=== PATIENT | male | born 1990 | race Caucasian/White ===

== ENCOUNTER 2022-03-12 18:55 | Emergency (ER) | payer BC, SELFPAY ==
--- NOTE | ~2022-03-12 | XR_ITS ---
EXAM: XR elbow LT min 3V DATE: 03/12/2022 19:14 HISTORY: left elbow pain after fall . COMPARISON: None available. FINDINGS: Normal mineralization. Slight cortical irregularity in the radial head. No lytic or blasti c lesion. Joint spaces are maintained. No erosion or periosteal change. Large elbow joint effusion. P osterior soft tissue swelling. IMPRESSION: Nondisplaced left radial head fracture. Large left elbow joint effusion. Reviewed, dictated and finalized at location K. IMPRESSION: Nondisplaced left radial head fracture. Large left elbow joint effu ashok.
--- NOTE | 2022-03-12 18:56 | ED.UPPEXIN ---
HPI - Extremity Injury (Upper) General Chief Complaint: Extremity Injury, Upper Stated Complaint: lt elbow injury Time Seen by Provider: 03/12/22 18:56 Source: patient and RN notes reviewed History of Present Illness HPI narrative: Patient is a 32-year-old male who presents the urgent care with complaints of left elbow pain after falling while rollerskating today at 2 PM. Patient denies of any swelling but states that the pain has worsened since the fall. Patient took ibuprofen for the pain. Patient is right-hand dominant. No other acute complaints or injuries. No acute distress noted. Patient aware of the plan of care. Some parts of this dictation were generated by voice recognition software and may contain typographical and/or grammatical inaccuracies. Related Data Allergies Allergy/AdvReac Type Severity Reaction Status Date / Time No Known Allergies Allergy Verified 03/12/22 19:03 Review of Systems Review of Systems: CONSTITUTIONAL: Denies fever, chills, or sweats. EYES: Denies visual changes, redness, or discharge. ENT: Denies rhinorrhea, congestion, sore throat, or otalgia. CARDIOVASCULAR: Denies chest pain, palpitations, or edema. RESPIRATORY: Denies cough or dyspnea. GASTROINTESTINAL: Denies abdominal pain, nausea, vomiting, or diarrhea. GENITOURINARY: Denies dysuria or hematuria. SKIN: Denies rash or itching. MUSCULOSKELETAL: Reports of left elbow pain. NEUROLOGIC: Denies headache, numbness, or weakness. All other systems reviewed are negative, except as documented in HPI. PMFSH Comments At the time of my signature, I reviewed and agree with the nursing past medical, surgical, social, and family history. There is no relevant family history pertinent to the patient complaint. Exam Narrative: GENERAL: This is a well-nourished, well-developed patient, in no apparent distress. HEAD: normocephalic, atraumatic. EYES: PERRL. Sclera clear/white. Vision is grossly intact. EARS: External ears normal NOSE: External nose normal with no obvious nasal discharge, nares without redness, no rhinorrhea. THROAT: Mucous membranes moist NECK: Neck supple SKIN: warm, intact with no suspicious lesions or rash, good texture and turgor. NEURO: awake, alert, and oriented to person, place and time. There were no obvious focal neurologic abnormalities. EXTREMITIES: Positive strong left radial pulse with capillary refill less than 2 seconds. Exacerbated pain on rotation. Full range of motion not tested due to pain and discomfort. Moderate edema to the left elbow with mild tenderness and notable joint effusion. No obvious deformity, ecchymosis or erythema. Course Course Level of Care: Express Care Visit Vital Signs Vital signs: Vital Signs Temperature 98.2 F 03/12/22 19:14 Pulse Rate 95 03/12/22 19:14 Respiratory Rate 20 03/12/22 19:14 Blood Pressure 123/79 03/12/22 19:14 Pulse Oximetry 100 03/12/22 19:14 Temperature 98.2 F 03/12/22 19:14 Pulse Rate 95 03/12/22 19:14 Respiratory Rate 20 03/12/22 19:14 Blood Pressure 123/79 03/12/22 19:14 Pulse Oximetry 100 03/12/22 19:14 Reviewed Procedures Orthopedic Splinting/Casting Injury #1: Side: left Upper Extremity Injury Location: elbow OCL: long arm Pre-Procedure Neuro Vascular Exam: normal Post-Procedure Neuro Vascular Exam: normal Other Orthopedic Equipment: other (Sling) Additional Comments: Long-arm OCL applied to the left for nondisplaced closed radial head fracture. Neurovascular exam within normal limits pre and postprocedure. Sling and OCL applied by veterinary technologist and RN. Patient tolerated well. No complications. Patient verbalizes his understanding on care for the OCL. MDM - Extremity Injury (Upper) MDM Narrative Medical decision making narrative: Reviewed x-ray results with the patient. He is aware that x-ray does show a radial head fracture without displacement. Advised the patien
[2022-03-12 19:14] VITALS: BP 123/79; PULSE 95; RESP 20; TEMP 36.8; O2SAT 100
== END 2022-03-12 19:58 | disposition home or self-care (01) ==
PROVIDERS: Emergency Provider Nurse Practitioner Family
DX: S52.125A Nondisplaced fracture of head of left radius, initial encounter for closed fracture (principal); W19.XXXA Unspecified fall, initial encounter; Y93.51 Activity, roller skating (inline) and skateboarding
CPT/HCPCS: 29105; 73080; 99214; A4565; G0463

== ENCOUNTER 2022-09-08 09:26 | Outpatient (CLI) | payer BC, SELFPAY ==
[2022-09-08 18:18] LABS: Basophils Percent Auto 0.5 % (0.2-1.2); Eosinophils Absolute Auto 0.2 K/mm3 (0-0.3); Hematocrit 41.2 % (42.0-52.0); Hemoglobin 13.6 g/dL (14.0-18.0); Immature Granulocyte Absolute 0.02 K/mm3 (0.00-0.031); Immature Granulocyte Percent A 0.3 % (0-0.5); Lymphocytes Absolute Auto 3.34 K/mm3 (0.9-3.2); Mean Corpuscular Hemoglobin 29.3 pg (26-34); Mean Corpuscular Volume 88.8 fl (80-100); Mean Platelet Volume 9.9 fl (7.4-10.4); Monocytes Absolute Auto 0.7 K/mm3 (0.1-0.6); Monocytes Percent Auto 8.9 % (2.6-8.5); Neutrophils Absolute Auto 3.2 K/mm3 (1.3-6.7); Neutrophils Percent Auto 43.3 % (45.5-73.1); Platelet Count Result 228 k/mm3 (150-375); Red Blood Count 4.64 M/mm3 (4.6-6.20); Red Cell Distribution Width 12.7 % (11.5-14.5); White Blood Count 7.4 K/mm3 (4.5-10.0)
[2022-09-08 19:02] LABS: Alanine Aminotransferase 31 U/L (6-50); Albumin Level 4.4 g/dL (3.5-5.1); Alkaline Phosphatase 75 U/L (38-126); Anion Gap 9 mmol/L (8-16); Aspartate Amino Transferase 28 U/L (17-59); Bilirubin,Total 0.7 mg/dL (0.2-1.3); Blood Urea Nitrogen 14 mg/dL (9-20); Calcium 8.7 mg/dL (8.4-10.2); Carbon Dioxide 28 mmol/L (22-30); Chloride 104 mmol/L (98-107); Cholesterol 122 mg/dL (0-200); Estimated Glomerular Filt Rate > 60; Glucose 93 mg/dL (65-110); HDL Direct 30 mg/dL; Sodium 141 mmol/L (137-145); Triglycerides 234 mg/dL (<150)
[2022-09-08 19:21] LABS: LDL Cholesterol Direct 52 mg/dL
== END 2022-09-08 09:27 | disposition home or self-care (01) ==
LOC: ANHGOSHLAB 09:28
PROVIDERS: PCP Internal Medicine; Visit Provider Nurse Practitioner
DX: Z13.29 Encounter for screening for other suspected endocrine disorder (principal); Z13.220 Encounter for screening for lipoid disorders; R53.83 Other fatigue
CPT/HCPCS: 36415; 80053; 80061; 84443; 85025

== ENCOUNTER 2022-10-12 16:02 | Outpatient (CLI) | payer BC, SELFPAY ==
[2022-10-12 19:14] LABS: Iron 78 ug/dL (49-181)
[2022-10-12 19:25] LABS: Percent Iron Saturation 22 % (20-50)
[2022-10-12 19:50] LABS: Basophils Percent Auto 0.4 % (0.2-1.2); Eosinophils Absolute Auto 0.1 K/mm3 (0-0.3); Eosinophils Percent Auto 1.1 % (0-4.4); Hematocrit 40.6 % (42.0-52.0); Hemoglobin 13.1 g/dL (14.0-18.0); Immature Granulocyte Absolute 0.03 K/mm3 (0.00-0.031); Immature Granulocyte Percent A 0.4 % (0-0.5); Lymphocytes Absolute Auto 3.85 K/mm3 (0.9-3.2); Lymphocytes Percent Auto 53.7 % (18.3-44.2); Mean Corpuscular HGB Conc 32.3 g/dl (32-36); Mean Platelet Volume 10.3 fl (7.4-10.4); Monocytes Absolute Auto 0.7 K/mm3 (0.1-0.6); Monocytes Percent Auto 9.5 % (2.6-8.5); Neutrophils Absolute Auto 2.5 K/mm3 (1.3-6.7); Neutrophils Percent Auto 34.9 % (45.5-73.1); Platelet Count Result 236 k/mm3 (150-375); Red Blood Count 4.51 M/mm3 (4.6-6.20); Red Cell Distribution Width 12.6 % (11.5-14.5); White Blood Count 7.2 K/mm3 (4.5-10.0)
[2022-10-12 20:12] LABS: Folic Acid 10.3 ng/mL (2.76->20)
== END 2022-10-12 16:03 | disposition home or self-care (01) ==
LOC: ANHGOSHLAB 16:03
PROVIDERS: PCP Internal Medicine; Visit Provider Nurse Practitioner
DX: D64.9 Anemia, unspecified (principal)
CPT/HCPCS: 36415; 82607; 82728; 82746; 83540; 83550; 85025

== ENCOUNTER 2022-11-06 09:38 | Outpatient (CLI) | payer BC, SELFPAY ==
--- NOTE | 2022-11-14 17:22 | WPDHOMESLEEP ---
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 He rarely awakens from sleep short of breath. He denies awakening at night with heartburn, belching or cough. He denies snoring. He denies having trouble sleeping when he has a cold. He rarely wakes up gasping for air throughout the night. He denies having breathing problems at night observed by himself or others. He occasionally sweats excessively at night. He denies having heart palpitations or irregular heartbeats during the night. He constantly falls asleep during the day but never while driving. He denies sleep paralysis, cataplexy and hypnagogic / hypnopompic hallucinations. He occasionally has trouble at school or work due to sleepiness. He denies feeling afraid of going to sleep. He rarely has nightmares and frequently remembers his dreams. He denies having thoughts racing through his mind. He denies feeling sad, depressed or anxious. He denies having muscular tension. He denies noticing parts of his body jerk. He denies kicking during the night. He occasionally experiences crawling and aching feelings in his legs but rarely has leg pain during the night. He occasionally grinds his teeth during sleep and frequently awakens with morning jaw pain. He denies being bothered by pain during the day and denies being awakened by pain during the night. He occasionally wakes up feeling stiff in morning. Occasionally wakes up with sore or achy muscles. He rarely wakes up with pain, spine or other joints. He goes to bed at midnight on the weekdays and between 11:00 p.m. to 2:00 a.m. on the weekends. It takes him 1 hour to fall asleep. Wakes up once throughout the night for unknown reasons but is able fall back asleep within 20 minutes. Typically gets 6-8 hours of sleep per night. He will stay in bed for 30-60 minutes after waking up in the morning. He currently lives with his daughter. He denies consuming any caffeinated beverages within 2 hours of bedtime. He denies engaging in physical exercise before bedtime. He denies reading and watching television before falling asleep. He will take naps in the afternoon or the evening but they are not refreshing. He has 1 caffeinated beverage per week. He will smoke cigarettes twice a year. He consumes 8 alcoholic beverages per weekend. He will use recreational drugs once per month. COUNT INCLUDES THE [facility] Past Medical History Medical History History of testicular biopsy 2016 Klinefelters syndrome Family History Family History Mother Thyroid disorder Social History Social History Smoking status: Unknown if ever smoked Smokeless tobacco user: chewing tobacco Alcohol intake: current Substance use: current Substance use type: crack/cocaine Lack of Transportation: No Lack of Food: Never True Current Housing: I Have Housing Concerned About Future Housing: No Difficulty Paying Gas/Electric Bills: No Difficulty Paying for Meds: No Currently Unemployed: No Education: High School Diploma/GED Difficulty w/ Childcare or Family Care: No Living arrangements: alone Occupation/Education: occupation 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
== END 2022-11-07 10:29 | disposition home or self-care (01) ==
LOC: ANHCSM 09:39
PROVIDERS: PCP Internal Medicine; Visit Provider Nurse Practitioner
DX: G47.33 Obstructive sleep apnea (adult) (pediatric) (principal); R53.82 Chronic fatigue, unspecified; R40.0 Somnolence; F17.220 Nicotine dependence, chewing tobacco, uncomplicated
CPT/HCPCS: 95806

== ENCOUNTER 2025-03-10 08:21 | Emergency (ER) | payer BC, SELFPAY ==
--- NOTE | ~2025-03-10 | XR_ITS ---
EXAMINATION: XR chest 2V, 03/10/2025 8:44 CDT HISTORY: right chest pain/sob worse with insp. r/o pneumo, sob 24 hrs COMPARISON: No comparisons available. Technique: 2 views obtained. Findings: The lungs are clear, no effusion. No pneumothorax. Heart is normal size. Mediastinal and hilar contours are within normal limits. Bony thorax no acute abnormality. Impression: No acute cardiopulmonary abnormality. Reviewed, dictated and finalized at location P. Impression: No acute cardiopulmonary abnormality.
--- NOTE | 2025-03-10 08:22 | ED_ITS ---
HPI - Chest Pain General Chief Complaint: Chest Pain Stated Complaint: CHEST PAIN Time Seen by Provider: 03/10/25 08:21 Source: patient Mode of arrival: ambulatory Limitations: no limitations History of Present Illness HPI narrative: Silvano is a 35 year old female patient presenting to the clinic today with c/o right-sided chest pain and shortness of breath x 1 day. Pain is radiating into the right arm. No neck or jaw pain. He reports pain is worse with inspiration on the right side. No injury. States he was sitting down playing [employer] when the pain began. He does vape nicotine. He is very tall and thin. No history of spontaneous pneumo in the past. Took naproxen for pain which did not help. Rates pain 8/10. Oxygen saturations 100% on room air. Patient is able speak in full sentences. Pain is worse when lying flat. History of anemia, Klinefelter syndrome, and crack cocaine use-last use was 3 years ago. Related Data Home Medications ?Medication ?Instructions ?Recorded ?Confirmed ?Last Taken ?Type No Home Medications 05/02/23 03/10/25 U nknown History Allergies Allergy/AdvReac Type Severity Reaction Status Date / Time No Known Allergies Allergy Verified 03/10/25 08:31 Review of Systems Review of Systems: Pertinent positives per HPI. Patient denies any fever, chills, rash, headache, visual changes, dizziness, cough, runny nose, sore throat, palpitations, nausea, vomiting, diarrhea, constipation, abdominal pain, or any urinary issues. [facility] Past Medical History Medical History Klinefelters syndrome History of testicular biopsy 2016 Family History Family History Mother Thyroid disorder Social History Social History Smoking status: Unknown if ever smoked Smokeless tobacco user: chewing tobacco Alcohol intake: current Substance use: current Substance use type: crack/cocaine Lack of Transportation: No Lack of Food: Never True Current Housing: I Have Housing Concerned About Future Housing: No Difficulty Paying Gas/Electric Bills: No Difficulty Paying for Meds: No Currently Unemployed: No Education: High School Diploma/GED Difficulty w/ Childcare or Family Care: No Living arrangements: alone Occupation/Education: occupation 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 There is no relevant family history pertinent to the patient complaint. Exam Narrative: General: Well-developed, well nourished, thin Head: Normocephalic, atraumatic. Cardio: Regular rate and rhythm, s1 and s2 normal, no murmur appreciated. Resp: Clear to auscultation bilaterally, no rhonchi, rales, wheezing or rubs. Extremities: No deformity, no edema, no cyanosis, capillary refill less than 2 s econds, peripheral pulses palpable and strong. Integumentary: [place], warm, and dry, intact without lesion, no rashes. Course Course Emergency Course: Portions of this record may have been created with voice recognition software. Level of Care: Express Care Visit Vital Signs Vital signs: Vital Signs Temperature 36.5 C 03/10/25 08:39 Pulse Rate 72 03/10/25 08:39 Respiratory Rate 16 03/10/25 08:39 Blood Pressure 112/87 03/10/25 08:39 Pulse Oximetry 100 03/10/25 08:39 Temperature 36.5 C 03/10/25 08:39 Pulse Rate 72 03/10/25 08:39 Respiratory Rate 16 03/10/25 08:39 Blood Pressure 112/87 03/10/25 08:39 Pulse Oximetry 100 03/10/25 08:39 Vital signs reviewed MDM - Chest Pain MDM Narrative Medical decision making narrative: At the time of visit patient is resting comfortably on the exam table. Patient appears to be nontoxic. C/o right-sided chest pain and shortness of breath x 1 day. Pain is radiating into the right arm. No neck or jaw pain. He reports pain is worse with inspiration on the right side. No injury. States he was sitting down playing [place] when the pain began. He does vape nicotine. He is very tall and thin. No history of spontaneous pneumo in the past. Took naproxen for pain which did not help. Rates pain 8/10. Oxygen saturations 100% on room air. Patient is able speak in full sentences. Pain is worse when lying flat. History of anemia, Klinefelter syndrome, and crack cocaine use EKG: EKG shows sinus bradycardia with heart rate of 56 beats per minute. No ST elevation, depression, or T-wave inversion noted. Diagnostics: Chest x-rays negative for any acute cardiopulmonary process, no pneumothorax. Plan: Patient is having right-sided chest pain and shortness of breath with pain radiating to the right arm. No neck or jaw pain. I recommend transfer to the ER for further evaluation. Patient would like to go to [facility]. Contacted Dr. Silva and discuss the case and she accepts patient for transfer. Differential Diagnosis Differential diagnosis: Likely fracture of rib, pneumothorax, stable angina, unstable angina pectoris, atypical chest pain, st elevation myocardial infarction, costochondritis and chest pain Imaging Data Radiologist's impression: ITS Impressions Chest X-Ray 03/10/25 08:51 Impression: No acute cardiopulmonary abnormality. ECG Data EKG #1: Attestation: I personally reviewed and interpreted this ECG as follows: ECG completion date: 03/10/25 ECG completion time: 08:33 Prior ECG tracings: not available for review Interpretation: EKG shows sinus bradycardia with heart rate of 56 beats per minute. No ST elevation, depression, or T-wave inversion noted. CT interval is 180 milliseconds, QRS durations 101 milliseconds, QT-QTC is 399-390 milliseconds, P-R-T axis is 52 48 45 Discharge Plan Discharge Clinical Impression: Right-sided chest pain, Shortness of breath Patient Disposition: Acute Care Hospital Condition: Stable Patient Language: Tajik Prescriptions: No Action No Home Medications Follow-up/Referrals: UNKNOWN,DOCTOR [Non-Staff] Time of Disposition: 09:03 Quality NIHSS Nursing Documentation ED NIHSS nursing documentation: reviewed/agree
--- NOTE | 2025-03-10 08:31 | ECG_ITS ---
Test Date: 2025-03-10 08:33:43 Measurements Intervals [place] Rate: 56 P: 52 [place]: 180 QRS: 48 QRSD: 101 T: 45 QT: 399 QTc: 386 Interpretive Statements SINUS BRADYCARDIA BASELINE WANDER- II, III BORDERLINE ECG No previous ECG available for comparison Electronically Signed On 03-10-2025 09:22:11 CDT by Nav Carreon D.O.
[2025-03-10 08:39] VITALS: BP 112/87; PULSE 72; RESP 16; TEMP 36.5; O2SAT 100
== END 2025-03-10 09:02 | disposition short-term general hospital (02) ==
PROVIDERS: Emergency Provider Nurse Practitioner Family
DX: R07.9 Chest pain, unspecified (principal); R06.02 Shortness of breath; F17.290 Nicotine dependence, other tobacco product, uncomplicated; F17.220 Nicotine dependence, chewing tobacco, uncomplicated
CPT/HCPCS: 71046; 93005; 99213; G0463

== ENCOUNTER 2025-03-10 09:26 | Observation (INO) | payer BC, SELFPAY ==
[2025-03-10] VITALS (7 sets, daily range): BP systolic 100–125; BP diastolic 57–82; PULSE 54–72; RESP 12–18; TEMP 36.2–36.8; O2SAT 97–100; BMI 25.6
--- NOTE | ~2025-03-10 | CT_ITS ---
CTA CHEST CT ABDOMEN PELVIS CLINICAL HISTORY: right chest/RUQ pain sob,m elevated dimer . COMPARISON: Chest x-ray same day TECHNIQUE: Helical CT performed from thoracic inlet to symphysis pubis IV contrast information not listed in PACS Coronal, sagittal reformats. Multiplanar MIPS CT images acquired with automatic exposure control for dose reduction DLP: 996 mGy-cm FINDINGS: CHEST- Thoracic Aorta: No dissection. No aneurysm. Aberrant origin right subclavian artery. Pulmonary arteries: PE lateral and posterior basilar segments RLL. Small PE right upper lobe segments. Probable tiny PE left lower lobe segment. Lungs/Pleura: Airspace disease lateral RLL. Heart: Unremarkable. Tracheobronchial tree: Patent. Nodes: No enlarged nodes. Bones: No acute bony abnormality. Soft tissues: Unremarkable. ABDOMEN/PELVIS- Liver: Unremarkable. Gallbladder: Unremarkable. Spleen: Unremarkable. Pancreas: Unremarkable. Adrenal glands: Unremarkable. Kidneys: Right kidney- No hydronephrosis. No renal stones. Left kidney- No hydronephrosis. No renal stones. Distal esophagus/stomach: Small hiatal hernia. Small bowel loops: Normal caliber and wall thickness. Colon: Normal caliber and wall thickness. Normal RLQ appendix. Nodes: No enlarged nodes. Peritoneum: No ascites. No free air. Urinary bladder: Unremarkable. Prostate: Unremarkable. Bones: No acute bony abnormality. Soft tissues: Unremarkable. Abdominal aorta: Unremarkable. IVC: Unremarkable. Main portal vein, SMV: Patent. IMPRESSION: CHEST- 1. PE. Largest foci right lower lobe, small foci right upper and left lower lobes. Overall small clot burden. 2. No CT evidence of right heart strain but labs more sensitive. 3. Right lower lobe pulmonary infarct. ABDOMEN/PELVIS- 1. No acute abdominopelvic findings. Reviewed, dictated and finalized at location R. IMPRESSION: CHEST- 1. PE. Largest foci right lower lobe, small foci right upper and left lower lo bes. Overall small clot burden. 2. No CT evidence of right heart strain but labs more sensitive. 3. Right lower lobe pulmonary infarct. ABDOMEN/PELVIS- 1. No acute abdominopelvic findings.
--- NOTE | ~2025-03-10 | US_ITS ---
ULTRASOUND ABDOMEN LIMITED (RIGHT UPPER QUADRANT) Clinical History: ruq pain Comparison: None Technique: Right upper quadrant sonography Findings: Liver: Enlarged. Echogenic. No intrahepatic biliary ductal dilatation. Normal hepatopedal flow and phasicity. Common Duct: Normal caliber. 3 mm. Gallbladder: No stones. No wall thickening. No pericholecystic fluid. Pancreas: Obscured by bowel gas. IMPRESSION: 1. No acute findings. Reviewed, dictated and finalized at location R. IMPRESSION: 1. No acute findings.
--- NOTE | ~2025-03-10 | US_ITS ---
BILATERAL US venous doppler LE BI Indication: PE, left leg pain intermitent Comparison: None Technique: Multiple lang scale and color Doppler sonographic images were obtained of the internal jugular, subclavian, axillary, brachial, basilar, radial and ulnar veins. Findings: Venous System:Normal flow, augmentation and compressibility. No echogenic thrombus identified. Soft tissues: Soft tissues are unremarkable. Impression: Negative for DVT. Reviewed, dictated and finalized at location P. Impression: Negative for DVT.
--- NOTE | 2025-03-10 09:29 | ECG_ITS ---
Test Date: 2025-03-10 09:35:38 Measurements Intervals [place] Rate: 74 P: 70 [place]: 176 QRS: 68 QRSD: 95 T: 57 QT: 377 QTc: 420 Interpretive Statements SINUS RHYTHM INCOMPLETE RIGHT BUNDLE BRANCH BLOCK BORDERLINE T WAVE ABNORMALITY- ANTERIOR LEADS BASELINE ARTIFACT- I, II, III, AVR, AVL, AVF, V1-V3 BORDERLINE ECG Compared to ECG 03/10/2025 08:33:43 HEART RATE HAS INCREASED Electronically Signed On 03-10-2025 11:36:24 CDT by Nav Carreon D.O.
[2025-03-10 09:51] LABS: Hematocrit 40.7 % (42.0-52.0); Hemoglobin 13.2 g/dL (14.0-18.0); Immature Granulocyte Percent A 0.5 % (0-0.5); Lymphocytes Absolute Auto 2.70 K/mm3 (0.9-3.2); Mean Corpuscular HGB Conc 32.4 g/dl (32-36); Mean Corpuscular Hemoglobin 28.7 pg (26-34); Mean Corpuscular Volume 88.5 fl (80-100); Nucleated Red Blood Cells Absolute Auto 0.000 K/mm3 (0.0-0.012); Nucleated Red Blood Cells Perc 0.0 % (0.0-0.2); Platelet Count Result 195 k/mm3 (150-375); Red Blood Count 4.60 M/mm3 (4.6-6.20); White Blood Count 8.4 K/mm3 (4.5-10.0)
[2025-03-10 10:07] LABS: INR 1.1; Partial Thromboplastin Time 27.2 Seconds (22.3-36.8); Prothrombin Time 13.9 Seconds (11.1-14.7)
[2025-03-10 10:20] LABS: Alanine Aminotransferase 36 U/L (6-50); Albumin Level 4.4 g/dL (3.5-5.1); Alkaline Phosphatase 68 U/L (38-126); Anion Gap 8 mmol/L (4-12); Aspartate Amino Transferase 37 U/L (17-59); Bilirubin,Total 0.8 mg/dL (0.2-1.3); Blood Urea Nitrogen 11 mg/dL (9-20); Calcium 8.9 mg/dL (8.4-10.2); Carbon Dioxide 28 mmol/L (22-30); Chloride 104 mmol/L (98-107); Estimated CRCL calculation 137 ml/min; Estimated Glomerular Filt Rate > 60; Glucose 98 mg/dL (65-110); Lipase 83 U/L (23-300); Potassium 3.8 mmol/L (3.4-5.0); Sodium 140 mmol/L (137-145); Total Protein 8.1 g/dL (6.3-8.2)
[2025-03-10 10:30] LABS: Troponin I < 0.012 ng/mL (0.000-0.034)
--- OUTSIDE RECORDS SUMMARY | 2025-03-10 10:36 | XMS_ITS | Clinical Summary ---
Author Organization [facility] Address [address] [place] [address] Phone Care Team Providers Care Dynamite Shooter Name Role Phone Junior Jung Primary Care Provider Allergies Active Allergy Reactions Criticality Noted Date Comments Buckwheat Unknown 09/01/2014 Calcium Rash Low 09/01/2014 Medications nirmatrelvir-ri tonavir (PAXLOVID) 300(150mg x 2)-100 mg oral packIndications :COVID-19 virus detected Take 300 mg nirmatrelvir (2 tablets) and 100 mg ritonavir (1 tablet) by mouth together twice daily for 5 days. 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 Klinefelter's syndrome 12/01/2014 Social History Tobacco Use Types Packs/Day Years Used Date Smoking Tobacco: Former Smokeless Tobacco: Never Tobacco Cessation:Counseling Given: Not Answered Alcohol Use Standard Drinks/Week Comments Yes 0 (1 standard drink = 0.6 oz pur e alcohol) Sex and Gender Information Value Date Recorded Sex Assigned at Not on file Legal Sex Male 8:21 AM CDT Gender Identity Not on file Sexual Orientation Not on file Last Filed Vital Signs Vital Sign Reading Time Taken Comments Blood Pressure 107/71 03/07/2022 2:59 PM CDT Pulse 86 03/07/2022 2:59 PM CDT Temperature 36.6 C (97.9 F) 03/07/2022 2:59 PM CDT Respiratory Rate 16 03/07/2022 2:59 PM CDT Oxygen Saturation 98% 03/07/2022 2:59 PM CDT Inhaled Oxygen Concentration - - Weight 90.7 kg (200 lb) 03/07/2022 2:59 PM CDT Height 200.7 cm (6' 7) 03/07/2022 2:59 PM CDT Body Mass Index 22.53 03/07/2022 2:59 PM CDT Plan of Treatment Health Maintenance Due Date Last Done Comments DTAP/TDAP/TD VACCINES (1 - Tdap) 2010 HEPATITIS B VACCINES (1 of 3 - 19+ 3-dose series) 12/27 HPV VACCINES (1 - 3-dose SCDM series) 2018 INFLUENZA VACCINE (#1) 2024 04/14/2021 Insurance [facility] Care Teams Dynamite Shooter Relationship Specialty Start Date End Date [place] [address] PCP - General Family Practice 02/18/16
[2025-03-10] MEDS: ASPIRIN 81 MG CHEWABLE TABLET 324 MG PO (11:59)
--- NOTE | 2025-03-10 12:10 | ECG_ITS ---
Test Date: 2025-03-10 12:29:05 Measurements Intervals [place] Rate: 60 P: 62 [place]: 190 QRS: 52 QRSD: 94 T: 46 QT: 417 QTc: 418 Interpretive Statements SINUS RHYTHM WITH SINUS ARRHYTHMIA INCOMPLETE RIGHT BUNDLE BRANCH BLOCK BORDERLINE ECG Compared to ECG 03/10/2025 09:35:38 NO SIGNIFICANT CHANGE Electronically Signed On 03-10-2025 14:21:45 CDT by Nav Carreon D.O.
--- NOTE | 2025-03-10 12:50 | ED_ITS ---
HPI - SOB/Dyspnea General Chief Complaint: Shortness of Breath/Dyspnea Stated Complaint: sob Time Seen by Provider: 03/10/25 12:04 History of Present Illness HPI Narrative: 35-year-old male with past medical history including Klinefelter syndrome, remote crack cocaine use, history of anemia. Patient presents to the emergency room today with right-sided chest discomfort associated with shortness of breath and positional changes. He states that he has difficulty lying flat secondary to the pain as well as taking a deep breath reproduces pain which he states is localized right under his right breast in the right upper quadrant area going towards his back and shoulder. No history of gallstones, pneumonia, DVT or PE history. Does not take any medications. No allergies. Went to urgent care today and was referred to the emergency department for further evaluation. Patient is not any acute distress and otherwise well-appearing. Related Data Home Medications ?Medication ?Instructions ?Recorded ?Confirmed ?Last Taken ?Type No Home Medications 05/02/23 03/10/25 U nknown History Allergies Allergy/AdvReac Type Severity Reaction Status Date / Time buckwheat Allergy Mild Unknown Verified 03/10/25 15:19 oysters Allergy Severe Anaphylaxis Uncoded 03/10/25 15:19 Review of Systems 2 Review of Systems: As reviewed above in HPI [facility] Past Medical History Medical History (Updated 03/11/25 @ 01:46 by Titus Boucher MD) Pulmonary embolism and infarction Klinefelters syndrome History of testicular biopsy 2016 Family History Family History Mother Thyroid disorder Social History Social History Smoking status: Current every day smoker Tobacco type: e-cigarettes/vaping Smokeless tobacco user: chewing tobacco Alcohol intake: never Substance use: never Substance use type: crack/cocaine Lack of Transportation: No Lack of Food: Never True Current Housing: I Have Housing Concerned About Future Housing: No Difficulty Paying Gas/Electric Bills: No Difficulty Paying for Meds: No Currently Unemployed: No Education: High School Diploma/GED Difficulty w/ Childcare or Family Care: No Living arrangements: alone Occupation/Education: occupation 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 Mucous membranes moist. NECK: Supple. CHEST: [Clear to auscultation. No respiratory distress.] HEART: [Regular rate and rhythm]. No murmur heard. [Normal peripheral pulses.] ABDOMEN: [Soft, nondistended], reproducible pain in the right upper quadrant with deep palpation and positive Chaparro sign. No overlying skin changes, [No rigidity or guarding] EXTREMITIES: Normal range of motion. [No edema.] SKIN: Warm, dry, no rash. NEURO: [No focal deficits]. Alert and oriented [x3.] PSYCH: [Normal mood and affect.] Course Vital Signs Vital signs: Vital Signs Pulse Rate 72 03/10/25 09:30 Respiratory Rate 18 03/10/25 09:30 Blood Pressure 125/80 03/10/25 09:30 Pulse Oximetry 100 03/10/25 09:30 Temperature 36.8 C 03/10/25 19:55 Pulse Rate 62 03/10/25 19:55 Respiratory Rate 18 03/10/25 19:55 Blood Pressure 106/57 L 03/10/25 19:55 Pulse Oximetry 97 03/10/25 19:55 Oxygen Delivery Room Air 03/10/25 15:12 MDM - SOB/Dyspnea MDM Narrative Medical decision making narrative: 35-year-old male with past medical history including Klinefelter syndrome, remote crack cocaine use, history of anemia. Patient presents to the emergency room today with right-sided chest discomfort associated with shortness of breath and positional changes. He states that he has difficulty lying flat secondary to the pain as well as taking a deep breath reproduces pain which he states is localized right under his right breast in the right upper quadrant area going towards his back and shoulder. No history of gallstones, pneumonia, DVT or PE history. Does not take any medications. No allergies. Went to urgent care today and was referred to the emergency department for further evaluation. Patient is not any acute distress and otherwise well-appearing. Patient otherwise has reassuring vital signs no tachycardia, fever, hypoxia or blood pressure concerns. He has reproducible pain underneath his right breast in the right upper quadrant produced with deep palpation and positive Chaparro sign. No asymmetric breath sounds. No overlying skin changes. Concerned that his chest pain that radiates towards the shoulder and back could potentially be biliary in nature like biliary colic versus cholelithiasis/cholecystitis. Also potential for pneumonia and less likely cardiac anomalies. A workup was ordered in triage including a D-dimer, EKG, chest x-ray and serial troponins. D-dimer mildly elevated. CT angiography of the chest was ordered for further evaluation of potential pulmonary embolism all right upper quadrant ultrasound ordered for further workup of his location of pain. Given Toradol for analgesia and re- evaluated. Patient's initial troponin is negative, CT angiography shows a pulmonary embolism with right-sided pulmonary infarct. No superimposed pneumonia. Patient was informed about the CT findings and given a weight based Lovenox stones b.i.d. starting now. Ultrasound of his right upper quadrant was negative. Discussed the case with the hospitalist who accepted the patient to a telemetry monitored bed for admission with ultrasound echocardiogram ordered and anticoagulation given. Patient remained hemodynamically stable and comfortable the plan for admission to the hospital at this time. Medical Records Attestation: I reviewed the patient's medical records. Lab Data Attestation: I reviewed the patient's lab results. 03/10/25 09:42 03/10/25 09:42 Labs: Lab Results 03/10/25 03/10/25 Range/Units 09:42 12:40 WBC 8.4 (4.5-10.0) K/mm3 RBC 4.60 (4.6-6.20) M/mm3 Hgb 13.2 L (14.0-18.0) g/dL Hct 40.7 L (42.0-52.0) % MCV 88.5 (80-100) fl MCH 28.7 (26-34) pg MCHC 32.4 (32-36) g/dl RDW 12.8 (11.5-14.5) % Plt Count 195 (150-375) k/mm3 MPV 9.5 (7.4-10.4) fl Immature Gran % (Auto) 0.5 (0-0.5) % Neut % (Auto) 54.6 (45.5-73.1) % Lymph % (Auto) 32.0 (18.3-44.2) % [place] % (Auto) 9.1 H (2.6-8.5) % Eos % (Auto) 3.2 (0-4.4) % Baso % (Auto) 0.6 (0.2-1.2) % Lymph # (Auto) 2.70 (0.9-3.2) K/mm3 [place] # (Auto) 0.8 H (0.1-0.6) K/mm3 Eos # (Auto) 0.3 (0-0.3) K/mm3 Baso # (Auto) 0.1 (0.0-0.1) K/mm3 Abs Immat Gran (auto) 0.04 H (0.00-0.031) K/mm3 Absolute Neuts (auto) 4.6 (1.3-6.7) K/mm3 Absolute Nucleated RBC 0.000 (0.0-0.012) K/mm3 Nucleated RBC % 0.0 (0.0-0.2) % PT 13.9 (11.1-14.7) Seconds INR 1.1 APTT 27.2 (22.3-36.8) Seconds D-Dimer 0.84 H (<0.48) ug/mL Sodium 140 (137-145) mmol/L Potassium 3.8 (3.4-5.0) mmol/L Chloride 104 (98-107) mmol/L Carbon Dioxide 28 (22-30) mmol/L Anion Gap 8 (4-12) mmol/L BUN 11 (9-20) mg/dL Creatinine 0.88 (0.7-1.3) mg/dL Estim Creat Clear Calc 137 ml/min Estimated GFR > 60 (59 - ) Glucose 98 (65-110) mg/dL Calcium 8.9 (8.4-10.2) mg/dL Total Bilirubin 0.8 (0.2-1.3) mg/dL AST 37 (17-59) U/L ALT 36 (6-50) U/L Alkaline Phosphatase 68 (38-126) U/L Troponin I < 0.012 < 0.012 (0.000-0.034) ng/mL Total Protein 8.1 (6.3-8.2) g/dL Albumin 4.4 (3.5-5.1) g/dL Lipase 83 (23-300) U/L Imaging Data Attestation: I personally reviewed and interpreted this imaging study as follows: My impression: Impressions Chest/Abdomen/Pelvis CTA 03/10/25 13:32 IMPRESSION: CHEST- 1. PE. Largest foci right lower lobe, small foci right upper and left lower lobes. Overall small clot burden. 2. No CT evidence of right heart strain but labs more sensitive. 3. Right lower lobe pulmonary infarct. ABDOMEN/PELVIS- 1. No acute abdominopelvic findings. Abdomen Ultrasound 03/10/25 13:39 IMPRESSION: 1. No acute findings. Critical Care Time Critical Care Time Critical Care Time: Yes Total Critical Care Time: 35 Discharge Plan Discharge Clinical Impression: Pulmonary embolism and infarction, Chest pain, Klinefelters syndrome Patient Disposition: Still a Patient Condition: Stable
--- NOTE | 2025-03-10 12:54 | PC.NURSE ---
ultrasound at bedside.
[2025-03-10] MEDS: KETOROLAC 15 MG/ML VIAL (*BKC) IV PUSH (13:05)
[2025-03-10 13:10] LABS: Troponin I < 0.012 ng/mL (0.000-0.034)
--- NOTE | 2025-03-10 13:56 | PC.NURSE ---
Dr. Boucher at bedside updating pt.
--- OUTSIDE RECORDS SUMMARY | 2025-03-10 14:02 | XMS_ITS | Clinical Summary ---
Author Organization [facility] Address [address] [place] [address] Phone Care Team Providers Care Vending Machine Servicer Name Role Phone Junior Jung Primary Care [...] 2018 INFLUENZA VACCINE (#1) 2024 04/14/2021 Insurance [facility] Care Teams Vending Machine Servicer Relationship Specialty Start Date End Date [place] [address] PCP - General Family Practice 02/18/16
[2025-03-10] MEDS: ENOXAPARIN 100 MG/ML SYRINGE SUB-Q ×2 (14:24→21:08)
--- NOTE | 2025-03-10 14:31 | PC.NURSE ---
Ultrasound at bedside. Meal tray ordered for pt.
--- NOTE | 2025-03-10 15:12 | ADMGEN ---
This patient, Silvano Elder, was admitted to Medical Room 254-01. Patient/family oriented to hospital policies and general routines including ID bracelet, bed and alarms, visiting hours, pain management, procedures, bathroom and other care routines, personal items, smoking policy, room service/diet, and visiting hours. Information on how to activate the Rapid Response Team has been discussed. Patient/Family are encouraged to report perceived risks to care and to ask questions if they do not understand what they are told or what they should do.
--- NOTE | 2025-03-10 15:34 | PM.IMHP ---
H&P: HPI History of Present Illness Date/Time: 03/10/25 15:34 Chief Complaint: Right-sided chest pain Narrative: 35-year-old male with past medical history of Klinefelters syndrome presents to the ED from Urgent Care on 03/10/2025 with complaints of right-sided chest pain that began on 03/09. Patient also endorses shortness of breath. Pain located on the right side of his chest just below the nipple line and radiates slightly towards his right shoulder and back. Reports pain is worse with inspiration and movement. Denies injury, cough, hemoptysis, fever, chills. Patient was playing a video game when pain began. No history of spontaneous pneumo. Patient states he took naproxen and went to bed thinking he pulled a muscle. Rated pain 01/04 arrival. Initial vitals 125/80, 72 heart rate, respirations 18, O2 100% on room air, 97.2? F Labs revealed stable anemia in a D-dimer of 0.84 Right upper quadrant ultrasound with no acute findings CXR with no acute cardiopulmonary abnormality CTA chest PE abdomen pelvis reveals PE with largest foci of right lower lobe, small foci right upper and left lower lobes. Overall small clot burden. No CT evidence of right heart strain. Right lower lobe pulmonary infarct Bilateral lower extremity venous Doppler negative for PE Review of Systems Review of Systems: All systems reviewed & are unremarkable except as noted in HPI and below PMFSH Past Medical History Medical History (Updated 03/11/25 @ 00:23 by Nicole White APRN) Pulmonary embolism and infarction Klinefelters syndrome History of testicular biopsy 2016 Family History Family History Mother Thyroid disorder Social History Social History Smoking status: Current every day smoker Tobacco type: e-cigarettes/vaping Smokeless tobacco user: chewing tobacco Alcohol intake: never Substance use: never Substance use type: crack/cocaine Lack of Transportation: No Lack of Food: Never True Current Housing: I Have Housing Concerned About Future Housing: No Difficulty Paying Gas/Electric Bills: No Difficulty Paying for Meds: No Currently Unemployed: No Education: High School Diploma/GED Difficulty w/ Childcare or Family Care: No Living arrangements: alone Occupation/Education: occupation 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 Gender identity (if verbalized by the patient): Male Spiritual care concerns: No Meds Home Medications and Allergies Home Medications ?Medication ?Instructions ?Recorded ?Confirmed ?Type No Home Medications 05/02/23 03/10/25 History Allergies Allergy/AdvReac Type Severity Reaction Status Date / Time buckwheat Allergy Mild Unknown Verified 03/10/25 15:19 oysters Allergy Severe Anaphylaxis Uncoded 03/10/25 15:19 Vital Signs Vital Signs - 24 hr 03/10/25 09:30 03/10/25 11:38 03/10/25 11:41 Temperature Pulse Rate 72 54 L Respiratory Rate 18 12 Blood Pressure 125/80 102/60 Pulse Oximetry 100 98 Oxygen Delivery Room Air 03/10/25 14:25 03/10/25 15:20 Temperature 97.2 F L Pulse Rate 57 L 57 L Respiratory Rate 17 16 Blood Pressure 110/82 100/60 Pulse Oximetry 100 99 Oxygen Delivery Exam Narrative: GENERAL: non-toxic appearing, in no acute distress. HEAD: Normocephalic, atraumatic. EYES: PERRLA. Conjunctivae clear. NOSE: Normal no drainage. THROAT: Pharynx clear, no exudate. NECK: Trachea midline. No adenopathy, no masses. RESPIRATORY: Airway patent, respirations nonlabored. CTA. Shallow respirations noted. Pain upon palpation to right chest area CARDIOVASCULAR: Regular rate and rhythm GASTROINTESTINAL: Abdomen is soft and nontender. No organomegaly. Bowel sounds normal in all quadrants. GENITOURINARY: Defer MUSCULOSKELETAL: Moves all extremities. No gross deformities. No calf tenderness. SKIN: Warm, dry, normal color. NEURO: A&O X4. Speech clear PSYCHIATRIC: Normal interaction H&P: Results Labs Labs: Short CBC 03/10/25 Range/Units 09:42 WBC 8.4 (4.5-10.0) K/mm3 Hgb 13.2 L (14.0-18.0) g/dL Hct 40.7 L (42.0-52.0) % Plt Count 195 (150-375) k/mm3 BMP 03/10/25 09:42 Sodium 140 Potassium 3.8 Chloride 104 Carbon Dioxide 28 BUN 11 Creatinine 0.88 Glucose 98 Calcium 8.9 Cardiac Enzymes 03/10/25 03/10/25 Range/Units 09:42 12:40 Troponin I < 0.012 < 0.012 (0.000-0.034) ng/mL Liver Function 03/10/25 Range/Units 09:42 Total Bilirubin 0.8 (0.2-1.3) mg/dL AST 37 (17-59) U/L ALT 36 (6-50) U/L Alkaline Phosphatase 68 (38-126) U/L Albumin 4.4 (3.5-5.1) g/dL Assessment and Plan Assessment and plan (1) Pulmonary embolism and infarction: Code(s): I26.99 - Other pulmonary embolism without acute cor pulmonale Status: Acute Assessment and Plan: Patient presented with sudden right-sided chest pain worse with inspiration that began on 03/09. CTA chest PE abdomen pelvis reveals PE with largest foci of right lower lobe, small foci right upper and left lower lobes. Overall small clot burden. No CT evidence of right heart strain. Right lower lobe pulmonary infarct. -Lovenox 100 mg q.12 started on 03/10 -echo ordered -pain control with acetaminophen, hydrocodone, morphine (2) Klinefelters syndrome: Code(s): Q98.4 - Klinefelter syndrome, unspecified Status: Acute Assessment and Plan: Diagnosed in childhood. Klinefelter syndrome carries an increased risk for DVT and PE. Plan Diet: Regular GI prophylaxis: NA DVT prophylaxis: Lovenox 100 mg q.12 lines/drains: PIV Fluids: None Code status: Full Quality VTE Prophylaxis VTE prophylaxis: pharmacologic ordered Hospitalist [facility] Advance Care Plan I have confirmed that the patient's Advanced Care Plan is present, code status is documented, or surrogate decision maker is listed in patient medical record.: Yes Medication Reconciliation I have utilized all available resources to obtain, update and review the patients current medications (includes all prescriptions, OTC, herbals, cannabis, and nutritional supplements).: Yes
[2025-03-10 16:38] LABS: Troponin I < 0.012 ng/mL (0.000-0.034)
[2025-03-10] MEDS: MORPHINE SULFATE (*CRX) 4 MG/ML INJ 2 MG IV PUSH ×2 (16:40→21:07)
[2025-03-10] MEDS: HYDROcodone/acetaminophen (*CRX) 5-325 MG TABLET 1 TAB PO (21:37)
[2025-03-11] VITALS (12 sets, daily range): BP systolic 93–123; BP diastolic 52–67; PULSE 62–97; RESP 16–18; TEMP 36.6–37.6; O2SAT 94–95
[2025-03-11] MEDS: MORPHINE SULFATE (*CRX) 4 MG/ML INJ 2 MG IV PUSH ×2 (01:15→11:44)
[2025-03-11] MEDS: HYDROcodone/acetaminophen (*CRX) 5-325 MG TABLET 1 TAB PO ×3 (03:14→20:14)
[2025-03-11] MEDS: diazePAM (*CRX) 5 MG TABLET PO (03:58)
--- NOTE | 2025-03-11 06:00 | ECHO_ITS ---
Patient Info Name: Silvano Elder Age: 35 years : 1990 Gender: Male Ht: 79 in Wt: 227 lbs BSA: 2.40 m2 HR: 67 bpm BP: 100 / 52 mmHg Heart Rhythm: Sinus Rhythm Technical Quality: Good Exam Date: 03/11/2025 9:13 AM Patient Status: O Admit Date: 03/10/2025 Exam Type: CA echo dop color flow w con Complete two-dimensional, color flow and Doppler transthoracic echocardiogram is performed with contrast to opacify the left ventricle and to improve the deliniation of the left ventricle endocardial borders. Staff Referring Physician: Titus Boucher Merchandise Flow Manager: Sumit Santos III Attending Provider: Lena Weinberg MD Contrast/Agitated Saline Contrast/Ag. Saline: Definity Amount: 2.00 ml Administered By: Sumit Santos III Existing IV Access: Yes IV Access Condition: patent with no signs of infiltration Summary 1. Left ventricular chamber dimension is normal. 2. Left ventricular systolic function is normal, estimated at 55-60. 3. There is no increased left ventricular wall thickness. 4. The left ventricular diastolic function is normal. 5. Right ventricular chamber dimension is mildly enlarged. 6. Right ventricular systolic function is normal. 7. There is mild mitral valve regurgitation. 8. There is mild tricuspid valve regurgitation. 9. There is mild pulmonic regurgitation. Left Ventricle Left ventricular chamber dimension is normal. Left ventricular systolic function is normal, estimated at 55-60. There is no increased left ventricular wall thickness. The left ventricular diastolic function is normal. Right Ventricle Right ventricular chamber dimension is mildly enlarged. Right ventricular systolic function is normal. Left Atria Left atrial chamber dimension is normal. Right Atria Right atrial chamber dimension is normal. Atrial Septum Intact interatrial septum visualized by color flow imaging. Aortic Valve The aortic valve is trileaflet. There is no aortic valve sclerosis. There is no aortic valve stenosis. There is trace aortic valve regurgitation. Pulmonic Valve The pulmonic valve is normal. There is no pulmonic valve stenosis. There is mild pulmonic regurgitation. Mitral Valve The mitral valve has normal leaflets. There is no mitral valve stenosis. There is mild mitral valve regurgitation. Tricuspid Valve The tricuspid valve leaflets are normal. There is no significant tricuspid valve stenosis. There is mild tricuspid valve regurgitation. No pulmonary hypertension, estimated pulmonary arterial systolic pressure is 16 mmHg. Pericardium/Pleural The pericardium appears normal. There is no pericardial effusion. Inferior Vena Cava Normal inferior vena cava with >50% collapse upon inspiration consistent with normal right atrial pressure, 10 mmHg. Aorta The aortic root size at the sinus of Valsalva is normal. Left Ventricular Outflow Tract Name Value Normal LVOT 2D LVOT Diameter 2.4 cm LVOT Doppler LVOT Peak Velocity 88 cm/s LVOT Peak Gradient 3 mmHg LVOT Mean Gradient 2 mmHg LVOT VTI 16 cm LVOT VTI/AV VTI Ratio 0.9 LVOT Stroke Volume 72 ml Pulmonic Valve Name Value Normal PV Doppler PV Peak Velocity 89 cm/s PV Peak Gradient 3 mmHg PV Mean Gradient 2 mmHg PV Regurgitation Doppler NV Peak End Diastolic Velocity 98 cm/s Mitral Valve Name Value Normal MV Doppler MV Peak Gradient 3 mmHg MV Mean Gradient 1 mmHg MV Area (Cont Eq VTI) 3.2 cm2 MV Diastolic Function MV E Peak Velocity 87 cm/s MV A Peak Velocity 48 cm/s MV E/A 1.8 MV Decel Time (PW) 256 ms MV Annular TDI MV E/e' (Septal) 5.6 MV E/e' (Lateral) 5.1 MV E/e' (Average) 5.4 Tricuspid Valve Name Value Normal TV Regurgitation Doppler TR Peak Velocity 119 cm/s TR Peak Gradient 6 mmHg Estimated PAP/RSVP RA Pressure 10 mmHg <=5 PA Systolic Pressure 16 mmHg <36 RV Systolic Pressure 16 mmHg <36 TV Annular TDI TV Lateral Cora s' Velocity 16.0 cm/s >=9.5 Aortic Valve Name Value Normal AV Doppler AV Peak Velocity 119 cm/s AV Peak Gradient 6 mmHg AV Mean Gradient 3 mmHg AV VTI 18 cm AV Area (Cont Eq VTI) 3.9 cm2 >=3.0 AV Area (Cont Eq Apollo) 3.3 cm2 AV DI (Apollo) 0.74 AV Regurgitation 2D LVOT Area 4.4 cm2 Ventricles Name Value Normal LV Dimensions 2D/MM IVS Diastolic Thickness (2D) 0.9 cm 0.6-1.0 LVID Diastole (2D) 4.8 cm 4.2-5.8 LVIW Diastolic Thickness (2D) 0.9 cm 0.6-1.0 LVID Systole (2D) 3.3 cm 2.5-4.0 LVOT Diameter 2.4 cm LV Mass (2D Cubed) 155.48 g 88.00-224.00 LV Mass Index (2D Cubed) 65 g/m2 49-115 Relative Wall Thickness (2D) 0.40 <=0.42 LV Fractional Shortening/Ejection Fraction 2D/MM LV Fractional Shortening (2D) 32 % 25-43 LV EF (2D Teichharmeetz) 59 % LV Diastolic Volume (4C MOD) 87 ml LV EF (4C MOD) 59 % LV Diastolic Volume (2C MOD) 113 ml LV EF (2C MOD) 61 % LV Diastolic Volume (BP MOD) 101 ml 62-150 LV Diastolic Volume Index (BP MOD) 42 ml/m2 34-74 LV Systolic Volume (BP MOD) 39 ml 21-61 LV Systolic Volume Index (BP MOD) 16 ml/m2 11-31 LV EF (BP MOD) 61 % 52-72 LV Diastolic Length (4C) 9.1 cm LV Systolic Length (4C) 7.3 cm LV Stroke Volume (4C MOD) 51 ml Atria Name Value Normal LA Dimensions LA Volume (4C A-L) 54 ml LA Volume (BP A-L) 49 ml RA Dimensions RA Systolic Major Sterling Length (4C) 5.7 cm 2.1-2.7 RA Area (4C) 21.7 cm2 <=18.0 Report Signatures
--- NOTE | 2025-03-11 07:57 | P.PNIM_ITS ---
Progress Note: A&P Assessment and Plan (1) Pulmonary embolism and infarction: Code(s): I26.99 - Other pulmonary embolism without acute cor pulmonale Status: Acute Assessment and Plan: Patient presented with sudden right-sided chest pain worse with inspiration that began on 03/09. 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 Largest foci right lower lobe, small foci right upper and left lower lobes. Overall small clot burden. No CT evidence of right heart strain but labs more sensitive. Right lower lobe pulmonary infarct. - Echo: LVEF 55-60% with normal diastolic function, no noted right heart strain - Analgesics: lidocaine, tylenol, norco 5-325 q4h, norco 7-325 q6h, and morphine 1 mg q4h patient currently requiring IV pain medication, continue to wean to orals as tolerated - Anticoagulation: Lovenox 100 mg BID started on admission, transitioned to eliquis 10 mg BID x7 days, then 5 mg BID (2) Klinefelters syndrome: Code(s): Q98.4 - Klinefelter syndrome, unspecified Status: Acute Assessment and Plan: Diagnosed in childhood. Klinefelter syndrome carries an increased risk for DVT and PE. Time Spent With Patient Time with patient: 25 - 35 minutes Subjective Date/time seen: 03/11/25 07:57 Interval history: 35-year-old male with past medical history of Klinefelters syndrome presents to the ED from Urgent Care on 03/10/2025 with complaints of right-sided chest pain. Patient is pleasant sitting up comfortably in bed. He continues to endorse right-sided rib pain and shortness of breath that is further exacerbated with ambulation. He has no other complaints denying chest pain, palpitations, nausea/vomiting, abdominal pain. Review of Systems Review of Systems: All systems reviewed & are unremarkable except as noted in HPI and below Exam Narrative: AF HR 84 RR 17 Spo2 94 BP 102/58 General: male in no acute respiratory distress who is nontoxic appearing, sit ting up in bed. HEENT: Normocephalic. Atraumatic. Extraocular movement intact. Sclera clear and anicteric. No facial asymmetry. Chest: Lungs are clear to auscultation bilaterally. Right rib pain. CV: Heart was regular rate and rhythm. Abd: Abdomen was soft. Nontender. Nondistended. Positive bowel sounds. Ext: No clubbing, cyanosis, or edema. DP pulses bilaterally. Neuro: Patient is alert. Speech is clear. Objective Data Vital Signs Vital Signs: Vital Signs - 24 hr 03/10/25 09:30 03/10/25 11:38 03/10/25 11:41 Temperature Pulse Rate 72 54 L Respiratory Rate 18 12 Blood Pressure 125/80 102/60 Pulse Oximetry 100 98 Oxygen Delivery Room Air 03/10/25 14:25 03/10/25 15:12 03/10/25 15:20 Temperature 97.2 F L Pulse Rate 57 L 57 L Respiratory Rate 17 16 Blood Pressure 110/82 100/60 Pulse Oximetry 100 99 Oxygen Delivery Room Air 03/10/25 16:00 03/10/25 19:55 03/10/25 20:00 Temperature 98.2 F Pulse Rate 58 L 62 68 Respiratory Rate 18 Blood Pressure 106/57 L Pulse Oximetry 97 Oxygen Delivery 03/10/25 20:00 03/11/25 00:00 03/11/25 04:00 Temperature Pulse Rate 62 71 Respiratory Rate Blood Pressure Pulse Oximetry Oxygen Delivery Room Air 03/11/25 04:47 Temperature 97.8 F Pulse Rate 67 Respiratory Rate 17 Blood Pressure 100/52 L Pulse Oximetry 95 Oxygen Delivery Intake/Output Intake/Output: Intake & Output 03/08/25 03/09/25 03/10/25 03/11/25 23:59 23:59 23:59 23:59 Intake Total 240 500 Balance 240 500 Meds/Results Medications: Active Medications Generic Name Dose Route Start Last Admin Trade Name Freq PRN Reason Stop Dose Admin Acetaminophen 650 mg 03/10/25 16:20 Acetaminophen 325 Mg Tablet PO Q4H PRN Mild Pain (1-3) or Fever Hydrocodone Bitart/Acetaminophen 1 tab 03/10/25 16:20 03/11/25 03:14 Hydrocodone/Acetaminophen (*Crx) 5-325 Mg Tablet PO 1 tab Q4H PRN Administration Pain Rated 4-6 Enoxaparin Sodium 100 mg 03/10/25 22:00 03/10/25 21:08 Enoxaparin 100 Mg/Ml Syringe SUB-Q 100 mg Q12HR LAURY Administration Morphine Sulfate 2 mg 03/10/25 16:20 03/11/25 01:15 Morphine Sulfate (*Crx) 4 Mg/Ml Inj IV PUSH 2 mg Q4H PRN Administration Pain Rated 7-10 Perflutren Lipid Microsphere 0 ml 03/10/25 14:03 Perflutren Lipid Microspheres 1.5 Ml Vial Diluted To 10 Ml Total Volume IV PUSH 03/13/25 14:03 ONCE PRN adequate visualization Protocol Radiology Results: ITS Impressions Chest/Abdomen/Pelvis CTA 03/10/25 13:32 IMPRESSION: CHEST- 1. PE. Largest foci right lower lobe, small foci right upper and left lower lobes. Overall small clot burden. 2. No CT evidence of right heart strain but labs more sensitive. 3. Right lower lobe pulmonary infarct. ABDOMEN/PELVIS- 1. No acute abdominopelvic findings. Abdomen Ultrasound 03/10/25 13:39 IMPRESSION: 1. No acute findings. Venous Doppler Study 03/10/25 15:05 Impression: Negative for DVT. Labs Labs: Laboratory Results - last 24 hr 03/10/25 03/10/25 03/10/25 09:42 12:40 15:59 WBC 8.4 RBC 4.60 Hgb 13.2 L Hct 40.7 L MCV 88.5 MCH 28.7 MCHC 32.4 RDW 12.8 Plt Count 195 MPV 9.5 Immature Gran % (Auto) 0.5 Neut % (Auto) 54.6 Lymph % (Auto) 32.0 [place] % (Auto) 9.1 H Eos % (Auto) 3.2 Baso % (Auto) 0.6 Lymph # (Auto) 2.70 [place] # (Auto) 0.8 H Eos # (Auto) 0.3 Baso # (Auto) 0.1 Abs Immat Gran (auto) 0.04 H Absolute Neuts (auto) 4.6 Absolute Nucleated RBC 0.000 Nucleated RBC % 0.0 PT 13.9 INR 1.1 APTT 27.2 D-Dimer 0.84 H Sodium 140 Potassium 3.8 Chloride 104 Carbon Dioxide 28 Anion Gap 8 BUN 11 Creatinine 0.88 Estim Creat Clear Calc 137 Estimated GFR > 60 Glucose 98 Calcium 8.9 Total Bilirubin 0.8 AST 37 ALT 36 Alkaline Phosphatase 68 Troponin I < 0.012 < 0.012 < 0.012 Total Protein 8.1 Albumin 4.4 Lipase 83 Quality VTE Prophylaxis VTE prophylaxis: pharmacologic ordered
[2025-03-11] MEDS: ENOXAPARIN 100 MG/ML SYRINGE SUB-Q (08:37)
[2025-03-11] MEDS: PERFLUTREN LIPID MICROSPHERES 1.5 ML VIAL DILUTED TO 10 ML TOTAL VOLUME IV PUSH (09:47)
--- NOTE | 2025-03-11 09:47 | IVDEFINITY ---
Prior to administration of IV Definity the patient was educated on the risks and benefits of the imaging enhancing agent including potential adverse side effects. The patient verbalized understanding. Allergies were verified. No exclusion criteria were identified and at least one of the following inclusion criteria were met: 1) physician request, 2) patient technically difficult to image (per the [place] [employer] guidelines of two or more segments not discernable within the apical view), or 3) questionable left ventricular function. ?
[2025-03-11] MEDS: HYDROcodone/acetaminophen (*CRX) 7.5-325 MG TABLET 1 TAB PO (14:48)
[2025-03-11] MEDS: LIDOCAINE 5% PATCH 1 PATCH TRANSDERM (17:20)
[2025-03-11] MEDS: APIXABAN 5 MG TABLET 10 MG PO (20:14)
[2025-03-12] VITALS: PULSE 98
[2025-03-12] MEDS: HYDROcodone/acetaminophen (*CRX) 7.5-325 MG TABLET 1 TAB PO (01:27)
[2025-03-12 04:00] VITALS: PULSE 88
[2025-03-12 04:19] LABS: Hematocrit 36.4 % (42.0-52.0); Hemoglobin 11.9 g/dL (14.0-18.0); Mean Corpuscular HGB Conc 32.7 g/dl (32-36); Mean Corpuscular Hemoglobin 29.0 pg (26-34); Mean Corpuscular Volume 88.8 fl (80-100); Platelet Count Result 176 k/mm3 (150-375); Red Blood Count 4.10 M/mm3 (4.6-6.20); White Blood Count 8.4 K/mm3 (4.5-10.0)
[2025-03-12 04:40] LABS: Alanine Aminotransferase 24 U/L (6-50); Albumin Level 3.9 g/dL (3.5-5.1); Alkaline Phosphatase 60 U/L (38-126); Anion Gap 9 mmol/L (4-12); Aspartate Amino Transferase 21 U/L (17-59); Bilirubin,Total 0.8 mg/dL (0.2-1.3); Blood Urea Nitrogen 10 mg/dL (9-20); Calcium 8.5 mg/dL (8.4-10.2); Carbon Dioxide 26 mmol/L (22-30); Chloride 101 mmol/L (98-107); Estimated CRCL calculation 125 ml/min; Estimated Glomerular Filt Rate > 60; Glucose 98 mg/dL (65-110); Potassium 3.6 mmol/L (3.4-5.0); Sodium 136 mmol/L (137-145); Total Protein 7.2 g/dL (6.3-8.2)
[2025-03-12 06:00] VITALS: BP 111/62; PULSE 68; RESP 18; TEMP 36.8; O2SAT 90
[2025-03-12 07:50] VITALS: RESP 18; O2SAT 90
[2025-03-12] MEDS: APIXABAN 5 MG TABLET 10 MG PO (07:59)
[2025-03-12] MEDS: LIDOCAINE 5% PATCH 1 PATCH TRANSDERM (07:59)
[2025-03-12 08:03] VITALS: PULSE 78
[2025-03-12 12:00] VITALS: PULSE 94
--- NOTE | 2025-03-12 13:04 | P.DS_ITS ---
DS: Admitting Diagnosis Discharge Date 03/12/2025 Admitting Diagnosis PE Klinefelters syndrome DS: Discharge Diagnosis Discharge Diagnosis (1) Pulmonary embolism and infarction: Code(s): I26.99 - Other pulmonary embolism without acute cor pulmonale Status: Acute (2) Klinefelters syndrome: Code(s): Q98.4 - Klinefelter syndrome, unspecified Status: Acute DS: Summary Hospital Course Reason for hospitalization: PE Klinefelters syndrome Hospital Course: 35-year-old male with past medical history of Klinefelters syndrome presents to the ED from Urgent Care on 03/10/2025 with complaints of right-sided chest pain. D dimer elevated on admission. Venous doppler negative. Chest/abdomen/pelvis CTA showed a PE. Largest foci right lower lobe, small foci right upper and left lower lobes. Overall small clot burden. No CT evidence of right heart strain but labs more sensitive. Right lower lobe pulmonary infarct. PE is likely related to patient's known history of Klinefelter syndrome as he has no other risk factors. Tele was reviewed and no arrhythmias noted. Patient was started on therapeutic Lovenox on admission before being transitioned to oral Eliquis. During admission patient endorsed increased right sided chest pain. Prior to discharge had a long discussion about eliquis and norco side effects. Patient states he does not have a primary care provider. Discussed with patient that he is to follow up with for hospital follow-up in 1-2 weeks. Patient states understanding. Strongly encouraged patient to obtain a primary care provider. Patient no complaints at time of discharge denying chest pain, shortness a breath, palpitations, nausea/vomiting, abdominal pain, and dizziness/lightheadedness. Patient discharged home with family in a stable condition. Follow up with the provided PCP in 1 week. Status at Discharge Functional status at discharge: independent ambulation Time Spent with Patient Time attestation: Total time spent providing and/or coordinating discharge services: Time spent: Greater than 30 minutes Exam Narrative: AF HR 68 RR 18 Spo2 90 BP 111/62 General: male in no acute respiratory distress who is nontoxic appearing, sitting up in bed. HEENT: Normocephalic. Atraumatic. Extraocular movement intact. Sclera clear and anicteric. No facial asymmetry. Chest: Lungs are clear to auscultation bilaterally. CV: Heart was regular rate and rhythm. Abd: Abdomen was soft. Nontender. Nondistended. Positive bowel sounds. Ext: No clubbing, cyanosis, or edema. DP pulses bilaterally. Neuro: Patient is alert. Speech is clear. DS: Data Data Completed and Pending Completed studies during hospitalization: venous doppler abdomen us chest/abdomen/pelvis cta chest xr Labs on day of discharge: Labs from last 24 hours 03/12/25 03:53 WBC 8.4 RBC 4.10 L Hgb 11.9 L Hct 36.4 L MCV 88.8 MCH 29.0 MCHC 32.7 RDW 12.4 Plt Count 176 MPV 9.8 Sodium 136 L Potassium 3.6 Chloride 101 Carbon Dioxide 26 Anion Gap 9 BUN 10 Creatinine 0.97 Estim Creat Clear Calc 125 Estimated GFR > 60 Glucose 98 Calcium 8.5 Total Bilirubin 0.8 AST 21 ALT 24 Alkaline Phosphatase 60 Total Protein 7.2 Albumin 3.9 Discharge Plan Discharge Attending physician on discharge: Gracia Hutton Consulting providers: Trixie Guillen Discharging Clinician: Trixie Guillen Anticipated Discharge Date/Time: 03/12/25 12:53 Patient Disposition: Home Activity: as tolerated Diet: as tolerated Discharge Instructions: Discharge disposition: Patient admitted to the hospital for a pulmonary embolism likely related to history of Klinefelter Take all medications as prescribed even if feeling better Eliquis 10 mg twice a day, course completed on 03/18 in the am Eliquis 5 mg twice a day to be started on 03/18 in the pm For ongoing pain able to take norco do not drive or operate heavy machinery on this medication Attached is information on this medication Eat well balanced meals and stay hydrated Strict bleeding precautions since you are being started on Eliquis including shaving with an electric razor, holding pressure for greater than 20 minutes for injury, protection of had with any falls, etc. Take caution while standing, rising, or moving Change positions slowly taking a break between each position change If you standing feel dizzy sit back down and take a break Encouraged to continue with yearly vaccinations Return to the emergency department if he developed sudden shortness of breath, chest pain, nausea, vomiting, upset stomach or intractable diarrhea Return to the emergency department if you develop fever greater than 100.5 Follow-up with the primary care physician within 1-2 weeks Thank you for choosing [facility] for your healthcare needs Patient Instructions: Hydrocodone/Acetaminophen (By mouth), Apixaban (By mouth), Pulmonary Embolism (DC), Blood Thinners (DC) Patient Language: Greek Stand Alone Forms: General Discharge Information Follow-up/Referrals: Roderick Foley MD [Physician, Family Practice] - 1 Week Discharge Medications: New hydrocodone-acetaminophen 5-325 mg Tablet 1 tablet PO Q4H PRN (Reason: Pain Rated 4-6) Qty: 6 0RF Eliquis 5 mg Tablet 10 mg PO Q12HR Qty: 11 0RF Eliquis 5 mg tablet 5 mg PO BID Qty: 60 1RF Rx Instructions: Medication to start after the completion of the 10 mg dose on 03/18 at night No Action No Home Medications Date of admission: 03/10/25 14:03 Primary Care Provider: 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
== END 2025-03-12 14:27 | disposition home or self-care (01) ==
LOC: ANHED 12:23 → ANH2MED 03-11 06:57
PROVIDERS: Student in an Organized Health Care Education/Training Program; Admitting Provider Family Medicine; Emergency Provider Student in an Organized Health Care Education/Training Program; Visit Provider Internal Medicine
DX: I26.99 Other pulmonary embolism without acute cor pulmonale (principal); Q98.4 Klinefelter syndrome, unspecified; F14.90 Cocaine use, unspecified, uncomplicated; Z86.711 Personal history of pulmonary embolism; F17.220 Nicotine dependence, chewing tobacco, uncomplicated; F17.290 Nicotine dependence, other tobacco product, uncomplicated
CPT/HCPCS: 36415; 71275; 74177; 76705; 80053; 83690; 84484; 85025; 85027; 85380; 85610; 85730; 93005; 93970; 96372; 96374; 96375; 96376; 99291; A9270; C8929; G0378; J1650; J1885; J2270; Q9957; Q9967